=== PATIENT | male | born 1980 | race African-American/Black ===

== ENCOUNTER 2016-11-11 17:07 | Emergency (ER) | payer MEDICARE, OTHER ==
[~2016-11-11] VITALS: Ht 195.6 cm; Wt 104.5 kg
[~2016-11-11 17:07] MED LIST: ATOR20TA86 PO; DOCU100C19 PO; FLUO-191 PO; GABA-533 PO; LEVE500T53 PO; OLAN10TA3 PO; OLAN5TAB2 PO
[2016-11-11] MEDS ORDERED: OXYC5CAP3 PO (17:20)
[2016-11-11 18:59] LABS: APPEARANCE,URINE CLOUDY (CLEAR); GLUCOSE, URINE (UA) NEGATIVE (NEGATIVE); KETONES,URINE NEGATIVE (NEGATIVE); LEUKOCYTE ESTERASE ,URINE MODERATE (NEGATIVE); OCCULT BLOOD,URINE NEGATIVE (NEGATIVE); PH,URINE 7.5 (5.0-8.0); PROTEIN,URINE NEGATIVE (NEGATIVE)
[2016-11-11 19:20] LABS: SQUAMOUS EPITHELIAL CELL,UR Few /LPF (None Seen); WBC,URINE 51-100 /HPF (0-5)
[2016-11-11 19:21] LABS: RBC,URINE None Seen /HPF (0-2)
[2016-11-11] MEDS ORDERED: CEPHALEXIN MONOHYDRATE 500 MG CAPSULE PO ONE (19:45)
[2016-11-11 20:03] VITALS: BP 122/70
== END 2016-11-11 20:12 | disposition home or self-care (01) ==
LOC: EMS 17:10
DX: N39.0 Urinary tract infection, site not specified (principal)
CPT/HCPCS: 87086; 99284

== ENCOUNTER 2019-01-19 15:30 | Inpatient (IN) | payer OTHER ==
[~2019-01-19] VITALS: Ht 193 cm; Wt 99.0 kg
[~2019-01-19 15:30] MED LIST changes: -ATOR20TA86 PO; -DOCU100C19 PO; +DSS100 PO; -FLUO-191 PO; -GABA-533 PO; +HYDR-4455 PO; +MULT-1204 PO; -OLAN10TA3 PO; -OLAN5TAB2 PO; +QUET25TA PO
[2019-01-19] MEDS ORDERED: SODIUM CHLORIDE 0.9% 1,000 ML IV ONE ×3 (15:35→18:45)
[2019-01-19] MEDS ORDERED: OLAN2.5T3 PO (15:50)
[2019-01-19] MEDS ORDERED: GABA-531 PO (15:50)
[2019-01-19 15:59] LABS: BASOPHILS % (AUTO) 0.4 % (0.0-2.0); EOSINOPHILS % (AUTO) 0.2 % (1.0-6.0); HEMATOCRIT 33.3 % (41-53); HEMOGLOBIN 11.2 g/dL (13.5-17.5); LYMPHOCYTES # (AUTO) 1.1 K/uL (1.0-4.8); LYMPHOCYTES % (AUTO) 5.8 % (22.0-44.0); MEAN CORPUSCULAR HEMOGLOBIN 22.5 pg (26.0-34.0); MEAN CORPUSCULAR HGB CONC 33.6 G/dL (31.0-37.0); MEAN CORPUSCULAR VOLUME 67 fL (80-100); MONOCYTES # (AUTO) 1.1 K/uL (0.1-1.0); MONOCYTES % (AUTO) 5.8 % (2.0-9.0); NEUTROPHILS # (AUTO) 16.2 K/uL (1.8-7.7); PLATELET COUNT (AUTO) 581 K/uL (150-450); RED BLOOD CELL COUNT(AUTO) 4.98 MIL/uL (4.50-5.90); RED CELL DISTRIBUTION WIDTH 19.5 % (11.5-14.5)
[2019-01-19] MEDS ORDERED: MORPHINE SULFATE 4 MG/ML SYRINGE IVP ONE ×2 (16:00→17:00)
[2019-01-19] MEDS ORDERED: ONDANSETRON HCL 4 MG/2 ML VIAL IVP ONE (16:00)
[2019-01-19 16:04] LABS: NEUTROPHILS % (AUTO) 87.8 % (40.0-70.0)
[2019-01-19 16:12] LABS: ANION GAP 12 mmol/L (8-16); CALCIUM, TOTAL 8.6 mg/dL (8.8-10.5); CARBON DIOXIDE 24 mmol/L (22-29); CHLORIDE 100 mmol/L (98-107); GLOMERULAR FILTR. RATE CALC > 60 mL/min (>60); GLUCOSE,RANDOM 113 mg/dL (70-110); POTASSIUM 3.3 mmol/L (3.5-5.1); SODIUM SERUM 136 mmol/L (136-145); UREA NITROGEN, BLOOD 6 mg/dL (7-18)
[2019-01-19] MEDS ORDERED: CefTRIAXone 1 GM/DEXTROSE 50 ML IV ONE (16:15)
[2019-01-19 16:18] LABS: ALANINE AMINOTRANSFERASE 18 U/L (12-78); ALBUMIN 2.5 g/dL (3.4-5.0); ALKALINE PHOSPHATASE 187 U/L (46-116); ASPARTATE AMINOTRANSFERASE 20 U/L (15-37); BILIRUBIN,TOTAL 0.2 mg/dL (0.1-1.0); TOTAL PROTEIN, SERUM 8.8 g/dL (6.4-8.2)
[2019-01-19 16:24] LABS: LACTIC ACID 1.2 mmol/L (0.4-2.0)
[2019-01-19 16:29] LABS: B-TYPE NATRIURETIC PEPTIDE 17 pg/mL (0-100)
[2019-01-19] MEDS ORDERED: DOCU-275 PO (16:55)
[2019-01-19] MEDS ORDERED: BACLOFEN 10 MG TABLET PO ONE (17:00)
[2019-01-19] MEDS ORDERED: ONDANSETRON HCL 4 MG/2 ML VIAL IVP PRN (17:00)
[2019-01-19] MEDS ORDERED: ACETAMINOPHEN 325 MG TABLET PO PRN (17:00)
[2019-01-19] MEDS ORDERED: ACETAMINOPHEN 500 MG TABLET PO ONE (17:00)
[2019-01-19] MEDS ORDERED: 0.9% SODIUM CHLORIDE 10 ML SYRINGE IVP PRN (17:00)
[2019-01-19 18:14] LABS: APPEARANCE,URINE CLOUDY (CLEAR); BILIRUBIN,URINE NEGATIVE (NEGATIVE); GLUCOSE, URINE (UA) NEGATIVE (NEGATIVE); KETONES,URINE NEGATIVE (NEGATIVE); LEUKOCYTE ESTERASE ,URINE SMALL (NEGATIVE); NITRATE,URINE NEGATIVE (NEGATIVE); OCCULT BLOOD,URINE SMALL (NEGATIVE); PH,URINE 5.5 (5.0-8.0); PROTEIN,URINE POS 1+ (NEGATIVE)
[2019-01-19 18:20] LABS: RBC,URINE 0-2 /HPF (0-2)
[2019-01-19 18:21] LABS: BACTERIA,URINE Few /HPF (None Seen)
[2019-01-19 18:22] LABS: SQUAMOUS EPITHELIAL CELL,UR Few /LPF (None Seen)
[2019-01-19 20:10] LABS: INFLUENZA TYPE A NEGATIVE FOR TYPE A (NEGATIVE); INFLUENZA TYPE B NEGATIVE FOR TYPE B (NEGATIVE)
[2019-01-19 21:30] VITALS: BP 115/69
[2019-01-20 01:15] VITALS: BP 131/74
[2019-01-20] MEDS ORDERED: POTASSIUM CHL 10 MEQ/WATER 50 ML IV PRN (01:30)
[2019-01-20] MEDS: MORPHINE SULFATE 2 MG/ML SYRINGE IVP PRN ×3 (02:03→17:33)
[2019-01-20 05:51] VITALS: BP 125/69
[2019-01-20] MEDS: POTASSIUM CHLORIDE 20 MEQ ER TABLET PO PRN ×3 (05:54→17:32)
[2019-01-20] MEDS ORDERED: ACETAMINOPHEN 325 MG TABLET PO PRN ×2 (08:30→18:45)
[2019-01-20 11:20] VITALS: BP 123/75
[2019-01-20] MEDS ORDERED: IBUPROFEN 600 MG TABLET PO PRN (12:45)
[2019-01-20 15:20] VITALS: BP 141/80
[2019-01-20] MEDS ORDERED: BISACODYL 10 MG RECTAL RECTAL SUPPOSITORY PR PRN (18:45)
[2019-01-20] MEDS ORDERED: ONDANSETRON HCL 4 MG/2 ML VIAL IVP PRN (18:45)
[2019-01-20] MEDS ORDERED: MAGNESIUM HYDROXIDE SUSPENSION 30 ML UDCUP PO PRN (18:45)
[2019-01-20] MEDS ORDERED: ZOLPIDEM TARTRATE 5 MG TABLET PO PRN (18:45)
[2019-01-20] MEDS ORDERED: IPRATROPIUM BROMIDE 0.5 MG/2.5 ML NEB SOLUTION NEB PRN (18:45)
[2019-01-20] MEDS ORDERED: ALBUTEROL SULFATE 2.5 MG/0.5 ML NEB SOLUTION NEB PRN (18:45)
[2019-01-20] MEDS ORDERED: SODIUM CHLORIDE 0.9% 250 ML IV ONE (19:59)
[2019-01-20] MEDS ORDERED: VANCOMYCIN HCL 1 GM/D5% WATER 200 ML IV SCH (20:00)
[2019-01-20] MEDS: DOCUSATE SODIUM 100 MG CAPSULE PO SCH (20:01)
[2019-01-20] MEDS: HYDROCODONE/ACETAMINOPHEN 5-325 MG TABLET PO PRN (20:01)
[2019-01-20] MEDS: LevETIRAcetam 500 MG TABLET PO SCH (20:02)
[2019-01-20] MEDS: QUEtiapine FUMARATE 25 MG TABLET PO SCH (20:02)
[2019-01-20] MEDS: PIPERACILLIN/TAZO 3.375 GM/D5W 50 ML IV SCH (20:17)
[2019-01-20 20:50] VITALS: BP 143/87
[2019-01-20] MEDS ORDERED: DOCUSATE SODIUM 100 MG CAPSULE PO SCH (21:00)
[2019-01-21 00:18] VITALS: BP 112/63
[2019-01-21] MEDS: HEPARIN SODIUM,PORCINE 5,000 UNITS/ML VIAL SQ SCH ×4 (00:31→23:40)
[2019-01-21] MEDS: MORPHINE SULFATE 2 MG/ML SYRINGE IVP PRN ×7 (00:31→23:41)
[2019-01-21] MEDS: GABAPENTIN 300 MG CAPSULE PO SCH ×4 (01:45→20:02)
[2019-01-21 03:32] VITALS: BP 109/67
[2019-01-21] MEDS: PIPERACILLIN/TAZO 3.375 GM/D5W 50 ML IV SCH ×4 (03:33→20:02)
[2019-01-21] MEDS: VANCOMYCIN HCL 1.25 GM in DEXTROSE 5%-WATER 250 ML IV SCH ×4 (06:05→23:41)
[2019-01-21] MEDS: HYDROCODONE/ACETAMINOPHEN 5-325 MG TABLET PO PRN ×2 (06:05→17:31)
[2019-01-21 06:59] LABS: BASOPHILS % (AUTO) 1.2 % (0.0-2.0); EOSINOPHILS % (AUTO) 1.8 % (1.0-6.0); HEMATOCRIT 33.8 % (41-53); LYMPHOCYTES # (AUTO) 1.7 K/uL (1.0-4.8); LYMPHOCYTES % (AUTO) 17.9 % (22.0-44.0); MEAN CORPUSCULAR HEMOGLOBIN 21.8 pg (26.0-34.0); MEAN CORPUSCULAR HGB CONC 32.4 G/dL (31.0-37.0); MEAN CORPUSCULAR VOLUME 68 fL (80-100); MONOCYTES # (AUTO) 0.6 K/uL (0.1-1.0); MONOCYTES % (AUTO) 6.8 % (2.0-9.0); NEUTROPHILS # (AUTO) 6.7 K/uL (1.8-7.7); NEUTROPHILS % (AUTO) 72.3 % (40.0-70.0); PLATELET COUNT (AUTO) 584 K/uL (150-450); RED BLOOD CELL COUNT(AUTO) 5.01 MIL/uL (4.50-5.90); RED CELL DISTRIBUTION WIDTH 19.9 % (11.5-14.5)
[2019-01-21 07:13] LABS: ALANINE AMINOTRANSFERASE 17 U/L (12-78); ALBUMIN 2.3 g/dL (3.4-5.0); ALKALINE PHOSPHATASE 146 U/L (46-116); ANION GAP 9 mmol/L (8-16); ASPARTATE AMINOTRANSFERASE 14 U/L (15-37); BILIRUBIN,TOTAL 0.3 mg/dL (0.1-1.0); CALCIUM, TOTAL 8.6 mg/dL (8.8-10.5); CARBON DIOXIDE 27 mmol/L (22-29); CHLORIDE 102 mmol/L (98-107); CREATININE 0.61 mg/dL (0.60-1.30); GLOMERULAR FILTR. RATE CALC > 60 mL/min (>60); GLUCOSE,RANDOM 77 mg/dL (70-110); POTASSIUM 3.4 mmol/L (3.5-5.1); SODIUM SERUM 138 mmol/L (136-145); TOTAL PROTEIN, SERUM 8.4 g/dL (6.4-8.2); UREA NITROGEN, BLOOD 7 mg/dL (7-18)
[2019-01-21 07:28] VITALS: BP 118/68
[2019-01-21] MEDS: DOCUSATE SODIUM 100 MG CAPSULE PO SCH ×2 (09:00→20:06)
[2019-01-21] MEDS ORDERED: OLANZapine 2.5 MG TABLET PO SCH (09:00)
[2019-01-21] MEDS: POTASSIUM CHLORIDE 20 MEQ ER TABLET PO PRN (09:59)
[2019-01-21] MEDS: MULTIVITAMINS WITH IRON TABLET PO SCH (10:00)
[2019-01-21] MEDS: LevETIRAcetam 500 MG TABLET PO SCH ×3 (10:00→20:02)
[2019-01-21] MEDS: QUEtiapine FUMARATE 25 MG TABLET PO SCH (10:00)
[2019-01-21 11:20] VITALS: BP 134/83
[2019-01-21] MEDS ORDERED: POTASSIUM CHL 10 MEQ/WATER 50 ML IV PRN (13:00)
[2019-01-21] MEDS ORDERED: POTASSIUM CHLORIDE 20 MEQ ER TABLET PO PRN (13:00)
[2019-01-21 15:10] VITALS: BP 142/90
[2019-01-21] MEDS: QUEtiapine FUMARATE 100 MG TABLET PO SCH (20:02)
[2019-01-21 20:25] VITALS: BP 124/67
[2019-01-22] MEDS: PIPERACILLIN/TAZO 3.375 GM/D5W 50 ML IV SCH ×3 (03:53→15:43)
[2019-01-22] MEDS: MORPHINE SULFATE 2 MG/ML SYRINGE IVP PRN ×4 (03:56→15:51)
[2019-01-22 05:12] VITALS: BP 136/83
[2019-01-22] MEDS: VANCOMYCIN HCL 1.25 GM in DEXTROSE 5%-WATER 250 ML IV SCH (05:31)
[2019-01-22 06:14] LABS: ANION GAP 9 mmol/L (8-16); CALCIUM, TOTAL 8.3 mg/dL (8.8-10.5); CARBON DIOXIDE 26 mmol/L (22-29); CHLORIDE 101 mmol/L (98-107); CREATININE 0.63 mg/dL (0.60-1.30); GLOMERULAR FILTR. RATE CALC > 60 mL/min (>60); GLUCOSE,RANDOM 97 mg/dL (70-110); POTASSIUM 3.2 mmol/L (3.5-5.1); SODIUM SERUM 136 mmol/L (136-145); UREA NITROGEN, BLOOD 4 mg/dL (7-18); VANCOMYCIN,RANDOM 19.1 mcg/mL (25.0-50.0)
[2019-01-22 08:23] VITALS: BP 129/73
[2019-01-22] MEDS: DOCUSATE SODIUM 100 MG CAPSULE PO SCH (09:17)
[2019-01-22] MEDS: LevETIRAcetam 500 MG TABLET PO SCH ×2 (09:17→15:44)
[2019-01-22] MEDS: POTASSIUM CHLORIDE 20 MEQ ER TABLET PO PRN (09:17)
[2019-01-22] MEDS: QUEtiapine FUMARATE 100 MG TABLET PO SCH (09:17)
[2019-01-22] MEDS: MULTIVITAMINS WITH IRON TABLET PO SCH (09:17)
[2019-01-22] MEDS: GABAPENTIN 300 MG CAPSULE PO SCH ×2 (09:17→15:43)
[2019-01-22] MEDS: HEPARIN SODIUM,PORCINE 5,000 UNITS/ML VIAL SQ SCH ×2 (09:18→15:45)
[2019-01-22 12:09] VITALS: BP 126/70
[2019-01-22 15:16] VITALS: BP 124/80
== END 2019-01-22 18:40 | disposition home health service (06) | DRG 871 ==
LOC: EMS 15:32 → 4E 19:59
PROVIDERS: ADMIT Hospitalist; ATTEND Hospitalist
DX: A41.9 Sepsis, unspecified organism (principal); L89.154 Pressure ulcer of sacral region, stage 4; L89.304 Pressure ulcer of unspecified buttock, stage 4; E43 Unspecified severe protein-calorie malnutrition; G82.20 Paraplegia, unspecified; F20.0 Paranoid schizophrenia; M86.8X8 Other osteomyelitis, other site; E87.6 Hypokalemia; F20.9 Schizophrenia, unspecified; J44.9 Chronic obstructive pulmonary disease, unspecified; S31.000A Unspecified open wound of lower back and pelvis without penetration into retroperitoneum, initial encounter; G40.909 Epilepsy, unspecified, not intractable, without status epilepticus; F31.9 Bipolar disorder, unspecified; F17.210 Nicotine dependence, cigarettes, uncomplicated; F12.10 Cannabis abuse, uncomplicated; Z59.0 Homelessness; Z91.19 Patient's noncompliance with other medical treatment and regimen; W34.09XA Accidental discharge from other specified firearms, initial encounter; Z71.6 Tobacco abuse counseling; Y93.89 Activity, other specified; Y92.89 Other specified places as the place of occurrence of the external cause; Y99.8 Other external cause status
CPT/HCPCS: 83605; 84132; 87040; 87070; 87081; 87205; 87804; 93005; 96365; 96375; 99291; G0378; J0696; J1644; J2270; J2405; J2543; J3370; J7030; J7050; J7060